=== PATIENT | female | born 1950 | race Caucasian/White ===

== ENCOUNTER 2017-12-24 17:42 | Emergency (ER) | payer MEDICARE ==
[~2017-12-24] VITALS: Ht 152.4 cm; Wt 76.0 kg
[2017-12-24 17:58] VITALS: BP 141/84; PULSE 70; RESP 16; TEMP 97.8; O2SAT 97
[2017-12-24] MEDS ORDERED: PILO5TAB3 PO (18:12)
[2017-12-24] MEDS ORDERED: FLUO40CA PO (18:12)
[2017-12-24] MEDS ORDERED: DIVA500T PO (18:12)
[2017-12-24] MEDS ORDERED: MIRA50TA PO (18:12)
[2017-12-24] MEDS ORDERED: QUET5TAB PO (18:12)
[2017-12-24] MEDS ORDERED: SODIUM CHLOR 0.9% 1000 ML INJ 1,000 ML IV SCH (18:16)
--- NOTE | 2017-12-24 18:19 | PD ---
HPI Chief Complaint: GI Complaint Time Seen by Provider: 18:16 Travel History International Travel<30 days: No Contact w/Intl Traveler<30days: No Traveled to known affect area: No History of Present Illness HPI 67-year-old female patient with history of Parkinson's disorders or, previous cholecystectomy, presents to the ER today because she has had nausea, vomiting, abdominal discomfort and diarrhea since yesterday. She has had some coughing as well but denies any chest pains, trouble breathing, fevers, or other symptoms. States that abdominal pain is about 4 out of 10 currently. She does not know of any sick contacts. She has had 2 episodes of vomiting and one episode of diarrhea today. Modifying Factors: None Associated Signs & Symptoms: Nausea, vomiting, abdominal pains, diarrhea Risk Factors: None PFSH Past Medical History Medical other: Yes (BLADDER PROBLEMS) Parkinson's Disease: Yes ?: Not Past Surgical History Section: Yes Cholecystectomy: Yes Social History Alcohol Use: Yes Tobacco Use: No Substance Use: No Allergies-Medications (Allergen,Severity, Reaction): Coded Allergies: Sulfa (Sulfonamide Antibiotics) (Verified Allergy, Intermediate, 12/24/17) Potassium drops when taking Reported Meds & Prescriptions Reported Meds & Active Scripts Active Reported Myrbetriq (Mirabegron) 50 Mg Tab 50 Mg PO DAILY Pilocarpine 5 Mg Tab 5 Mg PO Q6HR Quetiapine (Quetiapine Fumarate) 50 Mg Tab 50 Mg PO DAILY Divalproex DR (Divalproex Sodium) 500 Mg Tabdr 500 Mg PO BID Fluoxetine (Fluoxetine HCl) 40 Mg Cap 40 Cap PO DAILY Review of Systems Except as stated in HPI: all other systems reviewed are Neg Physical Exam Narrative GENERAL: Well-developed elderly female patient currently in mild distress. Awake and oriented 3. SKIN: Focused skin assessment warm/dry. HEAD: Atraumatic. Normocephalic. EYES: Pupils equal and round. No scleral icterus. No injection or drainage. ENT: No nasal bleeding or discharge. Mucous membranes pink and moist. NECK: Trachea midline. No JVD. CARDIOVASCULAR: Regular rate and rhythm. No murmur appreciated. RESPIRATORY: No accessory muscle use. Clear to auscultation. Breath sounds equal bilaterally. GASTROINTESTINAL: Abdomen soft, non-tender, nondistended. Hepatic and splenic margins not palpable. MUSCULOSKELETAL: No obvious deformities. No clubbing. No cyanosis. No edema. NEUROLOGICAL: Awake and alert. No obvious cranial nerve deficits. Motor grossly within normal limits. Normal speech. PSYCHIATRIC: Appropriate mood and affect; insight and judgment normal. Data Data Last Documented VS Vital Signs Date Time Temp Pulse Resp B/P (MAP) Pulse Ox O2 Delivery O2 Flow Rate FiO2 12/24/17 18:26 95 12/24/17 17:58 97.8 70 16 141/84 (103) Orders Orders Complete Blood Count With Diff (12/24/17 18:16) Comprehensive Metabolic Panel (12/24/17 18:16) Lipase (12/24/17 18:16) Urinalysis - C+S If Indicated (12/24/17 18:16) Iv Access Insert/Monitor (12/24/17 18:16) Ecg Monitoring (12/24/17 18:16) Oximetry (12/24/17 18:16) Sodium Chlor 0.9% 1000 Ml Inj (Ns 1000 M (12/24/17 18:16) Sodium Chloride 0.9% Flush (Ns Flush) (12/24/17 18:30) Metoclopramide Inj (Reglan Inj) (12/24/17 18:30) Labs Laboratory Tests Test 12/24/17 18:20 White Blood Count 4.2 TH/MM3 Red Blood Count 4.07 MIL/MM3 Hemoglobin 12.9 GM/DL Hematocrit 39.1 % Mean Corpuscular Volume 96.1 FL Mean Corpuscular Hemoglobin 31.7 PG Mean Corpuscular Hemoglobin Concent 33.0 % Red Cell Distribution Width 12.6 % Platelet Count 135 TH/MM3 Mean Platelet Volume 8.8 FL Neutrophils (%) (Auto) 52.6 % Lymphocytes (%) (Auto) 30.3 % Monocytes (%) (Auto) 15.6 % Eosinophils (%) (Auto) 0.4 % Basophils (%) (Auto) 1.1 % Neutrophils # (Auto) 2.2 TH/MM3 Lymphocytes # (Auto) 1.3 TH/MM3 Monocytes # (Auto) 0.6 TH/MM3 Eosinophils # (Auto) 0.0 TH/MM3 Basophils # (Auto) 0.0 TH/MM3 CBC Comment DIFF FINAL Differential Comment Sodium Level 132 MEQ/L Potassium Level 3.5 MEQ/L Chloride Level 100 MEQ/L MDM Medical Decision Making Medical Screen Exam Complete: Yes Emergency Medical Condition: Yes Medical Record Reviewed: Yes Interpretation(s) Laboratory Tests Test 12/24/17 18:20 Platelet Count 135 TH/MM3 (150-450) Monocytes (%) (Auto) 15.6 % (0.0-8.0) Sodium Level 132 MEQ/L (136-145) Differential Diagnosis Gastroenteritis versus pancreatitis versus dehydration or electrolyte abnormalities Narrative Course Lab work was ordered for the patient. Nausea medication and IV fluids for the patient. Physician Communication Physician Communication Case is signed out to Dr. Ellis at 7 PM awaiting workup. Disposition based on findings. Diagnosis Primary Impression: Nausea vomiting and diarrhea Condition: Stable Susana Lopez MD Dec 24, 2017 18:19
[2017-12-24 18:26] VITALS: O2SAT 95
[2017-12-24] MEDS ORDERED: METOCLOPRAMIDE HCL 10 MG/2 ML VIAL IV PUSH ONE (18:30)
[2017-12-24] MEDS ORDERED: SODIUM CHLORIDE 0.9% FLUSH 10 ML FLUSH IV FLUSH PRN (18:30)
[2017-12-24 18:47] LABS: AUTOMATED NEUTROPHIL # 2.2 TH/MM3 (1.8-7.7); BASOPHIL % 1.1 % (0.0-2.0); EOSINOPHIL % 0.4 % (0.0-4.0); HEMATOCRIT 39.1 % (35.0-46.0); HEMOGLOBIN 12.9 GM/DL (11.6-15.3); LYMPH % 30.3 % (9.0-44.0); LYMPHOCYTE # 1.3 TH/MM3 (1.0-4.8); MEAN CELL VOLUME 96.1 FL (80.0-100.0); MEAN CORPUSCULAR HEMOGLOBIN 31.7 PG (27.0-34.0); MEAN PLATELET VOLUME 8.8 FL (7.0-11.0); MONO % 15.6 % (0.0-8.0); MONOCYTE # 0.6 TH/MM3 (0-0.9); NEUT % 52.6 % (16.0-70.0); PLATELET COUNT 135 TH/MM3 (150-450); RED BLOOD COUNT 4.07 MIL/MM3 (4.00-5.30); RED CELL DISTRIBUTION WIDTH 12.6 % (11.6-17.2); WHITE BLOOD COUNT 4.2 TH/MM3 (4.0-11.0)
[2017-12-24 18:54] LABS: CHLORIDE 100 MEQ/L (98-107); SODIUM (NA) 132 MEQ/L (136-145)
[2017-12-24 18:57] LABS: CALCIUM 8.5 MG/DL (8.5-10.1)
[2017-12-24 18:58] LABS: ALBUMIN 3.4 GM/DL (3.4-5.0); BICARBONATE 24.5 MEQ/L (21.0-32.0); BLOOD UREA NITROGEN 9 MG/DL (7-18); GLUCOSE,RANDOM 102 MG/DL (74-106)
[2017-12-24 19:01] LABS: ALT (GPT) 18 U/L (10-53); AST (GOT) 30 U/L (15-37); CREATININE 0.65 MG/DL (0.50-1.00); GLOMERULAR FILTRATION RATE 91 ML/MIN (>89)
[2017-12-24 19:02] LABS: TOTAL BILIRUBIN ADULT 0.3 MG/DL (0.2-1.0)
[2017-12-24 19:04] LABS: ALKALINE PHOSPHATASE 59 U/L (45-117)
[2017-12-24 20:30] VITALS: BP 124/53; PULSE 62; RESP 16; O2SAT 100
--- NOTE | 2017-12-24 20:30 | PD ---
Physical Exam Time Seen by Provider: 20:28 Narrative It is now 8:28 PM and the patient feels much better, she has no nausea and can drink p.o. liquids. Impression: Gastroenteritis Plan: The patient will be given Zofran and will increase her liquid intake and follow-up with her primary care physician next week. Data Data Last Documented VS Vital Signs Date Time Temp Pulse Resp B/P (MAP) Pulse Ox O2 Delivery O2 Flow Rate FiO2 12/24/17 21:20 12/24/17 20:30 62 16 100 Room Air 12/24/17 17:58 97.8 Orders Orders Complete Blood Count With Diff (12/24/17 18:16) Comprehensive Metabolic Panel (12/24/17 18:16) Lipase (12/24/17 18:16) Urinalysis - C+S If Indicated (12/24/17 18:16) Iv Access Insert/Monitor (12/24/17 18:16) Ecg Monitoring (12/24/17 18:16) Oximetry (12/24/17 18:16) Sodium Chlor 0.9% 1000 Ml Inj (Ns 1000 M (12/24/17 18:16) Sodium Chloride 0.9% Flush (Ns Flush) (12/24/17 18:30) Metoclopramide Inj (Reglan Inj) (12/24/17 18:30) Ed Discharge Order (12/24/17 21:07) Labs Laboratory Tests Test 12/24/17 18:20 12/24/17 20:45 White Blood Count 4.2 TH/MM3 Red Blood Count 4.07 MIL/MM3 Hemoglobin 12.9 GM/DL Hematocrit 39.1 % Mean Corpuscular Volume 96.1 FL Mean Corpuscular Hemoglobin 31.7 PG Mean Corpuscular Hemoglobin Concent 33.0 % Red Cell Distribution Width 12.6 % Platelet Count 135 TH/MM3 Mean Platelet Volume 8.8 FL Neutrophils (%) (Auto) 52.6 % Lymphocytes (%) (Auto) 30.3 % Monocytes (%) (Auto) 15.6 % Eosinophils (%) (Auto) 0.4 % Basophils (%) (Auto) 1.1 % Neutrophils # (Auto) 2.2 TH/MM3 Lymphocytes # (Auto) 1.3 TH/MM3 Monocytes # (Auto) 0.6 TH/MM3 Eosinophils # (Auto) 0.0 TH/MM3 Basophils # (Auto) 0.0 TH/MM3 CBC Comment DIFF FINAL Differential Comment Blood Urea Nitrogen 9 MG/DL Creatinine 0.65 MG/DL Random Glucose 102 MG/DL Total Protein 9.0 GM/DL Albumin 3.4 GM/DL Calcium Level 8.5 MG/DL Alkaline Phosphatase 59 U/L Aspartate Amino Transf (AST/SGOT) 30 U/L Alanine Aminotransferase (ALT/SGPT) 18 U/L Total Bilirubin 0.3 MG/DL Sodium Level 132 MEQ/L Potassium Level 3.5 MEQ/L Chloride Level 100 MEQ/L Carbon Dioxide Level 24.5 MEQ/L Anion Gap 8 MEQ/L Estimat Glomerular Filtration Rate 91 ML/MIN Lipase 220 U/L Urine Color YELLOW Urine Turbidity CLEAR Urine pH 7.0 Urine Specific [place] 1.010 Urine Protein NEG mg/dL Urine Glucose (UA) NEG mg/dL Urine Ketones NEG mg/dL Urine Occult Blood TRACE Urine Nitrite NEG Urine Bilirubin NEG Urine Urobilinogen 0.2 MG/DL Urine Leukocyte Esterase NEG Urine RBC 0-3 /hpf Urine WBC 0-2 /hpf Urine Squamous Epithelial Cells 0-5 /hpf Urine Bacteria NONE /hpf Microscopic Urinalysis Comment CULT NOT INDICATED MDM Medical Record Reviewed: Yes Supervised Visit with VALDO: No Differential Diagnosis Gastroenteritis, colitis, small bowel obstruction-extremely unlikely, bacterial enteritis Narrative Course The patient's low white count as well as her history suggests a viral gastroenteritis. The patient is given Zofran and told to follow-up with her primary care physician when she returns to [place]. She will stay here in [place] for 2 weeks. She should increase her liquid intake and return the emergency department if worse. The patient does not have any abdominal pain or abdominal tenderness on physical exam. It is now 8:43 PM and the patient is now urinating. Diagnosis Primary Impression: Viral gastroenteritis Additional Impression: Mild dehydration Additional Instruction: As we discussed, it is necessary to increase liquid intake and take the Zofran regularly. Zofran is taken 1 tablet every 6 hours to prevent nausea. Return to emergency department if worse. Med/Other Pt SpecificInfo: Prescription(s) given Scripts Ondansetron (Zofran) 8 Mg Tab 8 MG PO TID for Nausea/Vomiting, #21 TAB 0 Refills Prov: Carlos Alberto Ellis MD 12/24/17 Disposition: 01 DISCHARGE HOME Condition: Stable Carlos Alberto Ellis MD Dec 24, 2017 20:30
[2017-12-24] MEDS ORDERED: ZOFR8TAB PO (20:35)
[2017-12-24 20:57] LABS: BILIRUBIN, URINE NEG (NEG); BLOOD, URINE TRACE (NEG); GLUCOSE,URINE NEG (NEG); KETONE, URINE NEG (NEG); NITRITE,URINE NEG (NEG); URINE COLOR YELLOW (YELLW/STRAW); URINE LEUKOCYTE ESTERASE NEG (NEG)
[2017-12-24 21:01] LABS: RBC, URINE 0-3 /hpf (0-3); SQUAMOUS EPITHELIAL CELL URINE 0-5 /hpf (0-5); WBC, URINE 0-2 /hpf (0-5)
== END 2017-12-24 21:20 | disposition home or self-care (01) ==
LOC: PHED 17:42
DX: A08.4 Viral intestinal infection, unspecified (principal); E86.0 Dehydration; R05 Cough; G20 Parkinson's disease; Z87.448 Personal history of other diseases of urinary system
CPT/HCPCS: 80053; 81001; 83690; 85025; 96361; 96374; 99284; J2765; J7030